=== PATIENT | male | born 1950 | race Caucasian/White ===

== ENCOUNTER → 2018-12-07 | Outpatient (CLI) | payer OTHER ==
--- NOTE | 2018-12-07 14:12 | PCVCIMAG ---
APPROVED REPORT Study performed: 12/07/2018 13:27:45 EXAM: Comprehensive 2D, Doppler, and color-flow Echocardiogram Patient Location: Echo lab Status: stat BSA: 2.33 HR: 61 bpmBP: 148/80 mmHg Rhythm: NSR Other Information Study Quality: Good Risk Factors: Cardiac Risk Factors: HTN, Hyperlipidemia, DM Indications Edema 2D Dimensions IVSd: 16.27 (7-11mm)LVOT Diam: 20.99 (18-24mm) LVDd: 50.06 mm PWd: 11.50 (7-11mm)Ascending Ao: 43.79 (22-36mm) LVDs: 39.96 (25-40mm) Left Atrium: 47.85 (27-40mm) Aortic Root: 34.01 mm LV Single Plane 4CH: 55.11 % LV Single Plane 2CH: 54.58 % Biplane EF: 55.7 % Volumes Left Atrial Volume (Systole) Single Plane 4CH: 44.61 mLSingle Plane 2CH: 62.96 mL LA ESV Index: 23.00 mL/m2 Aortic Valve AoV Peak Real.: 1.58 m/s AO Peak Gr.: 10.01 mmHgLVOT Max P.63 mmHg LVOT Max V: 1.08 m/s LISANDRO Vmax: 2.35 cm2 Mitral Valve E/A Ratio: 0.6 MV Decel. Time: 253.00 ms MV E Max Real.: 0.57 m/s MV A Real.: 0.99 m/s TDI E/Lateral E': 11.40E/Medial E': 5.70 Medial E' Real.: 0.10 m/s Lateral E' Real.: 0.05 m/s Left Ventricle The left ventricle is normal size. There is normal LV segmental wall motion. Mild concentric left ventricular hypertrophy. Left ventricular systolic function is normal. The left ventricular ejection fraction is within the normal range. LVEF is 55-60%. Grade I - abnormal relaxation pattern. Right Ventricle The right ventricle is normal size. The right ventricular systolic function is normal. Atria The left atrium size is normal. The right atrium size is normal. Aortic Valve The aortic valve is normal in structure. No aortic regurgitation is present. There is no aortic valvular stenosis. Mitral Valve The mitral valve is normal in structure. There is no mitral valve regurgitation noted. No evidence of mitral valve stenosis. Tricuspid Valve The tricuspid valve is normal in structure. Trace tricuspid regurgitation. Pulmonary artery pressure is 33mmHg. Pulmonic Valve The pulmonary valve is normal in structure. There is no pulmonic valvular regurgitation. Great Vessels The aortic root is normal in size. 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 IVC is normal in size and collapses >50% with inspiration. Pericardium There is no pericardial effusion. <Conclusion> The left ventricle is normal size. Mild concentric left ventricular hypertrophy. Left ventricular systolic function is normal. Grade I - abnormal relaxation pattern. The right ventricle is normal size. The left atrium size is normal. The aortic valve is normal in structure. There is no mitral valve regurgitation noted. Trace tricuspid regurgitation. Pulmonary artery pressure is 33mmHg. 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
== END | disposition home or self-care (01) ==
LOC: PCVCIMAG 13:08
PROVIDERS: ATTEND Internal Medicine Cardiovascular Disease
DX: I11.9 Hypertensive heart disease without heart failure (principal); E78.00 Pure hypercholesterolemia, unspecified; E11.9 Type 2 diabetes mellitus without complications; I49.3 Ventricular premature depolarization; E03.9 Hypothyroidism, unspecified; E78.5 Hyperlipidemia, unspecified; Z79.4 Long term (current) use of insulin; Z79.82 Long term (current) use of aspirin; Z79.899 Other long term (current) drug therapy; Z87.891 Personal history of nicotine dependence; Z72.89 Other problems related to lifestyle
CPT/HCPCS: 93306